=== PATIENT | male | born 1980 | race Hispanic/Latino ===

== ENCOUNTER 2017-04-30 18:39 | Emergency (ER) | payer OTHER ==
[2017-04-30 19:21] LABS: Anion Gap 20 mmol/L; Blood Urea Nitrogen 15 mg/dL (9-20); Calcium 9.2 mg/dL (8.4-10.2); Carbon Dioxide 25 mmol/L (22-30); Chloride 102.3 mmol/L (98-107); Glucose 72 mg/dL (75-100); Sodium 143 mmol/L (137-145)
[2017-04-30 19:29] LABS: Basophils % (Auto) 0.8 % (0.0-1.8); Eosinophils % (Auto) 1.3 % (0.0-4.3); Hematocrit 45.6 % (35.5-45.6); Hemoglobin 15.4 gm/dl (11.8-15.2); Mean Corpuscular HGB Conc 34 % (32-34); Mean Corpuscular Hemoglobin 30 pg (28-32); Mean Corpuscular Volume 88 fl (84-94); Platelet Count 322 K/mm3 (140-440); Red Blood Count 5.18 M/mm3 (3.65-5.03); Red Cell Distribution Width 13.5 % (13.2-15.2)
--- NOTE | 2017-04-30 19:54 | Emergency Department Report ---
ED Chest Pain HPI - General Chief Complaint: Chest Pain Stated Complaint: CHEST PAIN Time Seen by Provider: 04/30/17 19:14 Source: patient Mode of arrival: Ambulatory Limitations: No Limitations - History of Present Illness Initial Comments: This is a 36-year-old male presents to the emergency department with a complaint of some left sided chest pain that began earlier today while he was at a for a coworker. The pain radiates to the left arm. It was at an intensity of about 5 out of 10 and now is down to 2 out of 10. EMS came and evaluated him including getting an Accu-Chek, EKG and vitals but he did not come in by ambulance. He did not take anything and was not given anything for his symptoms. Presentation. He does not have a primary care physician but does have [employer] insurance. He denies tobacco abuse or any illicit drug use. He has a past medical history of hypertension. He has a family history of having a father who had a heart attack at 35 years of age. No recent travel or sick contacts at home. Severity scale (0 -10): 5 - Related Data Home Medications Medication Instructions Recorded Confirmed Last Taken Atenolol [Tenormin] 50 mg PO DAILY 04/30/17 04/30/17 04/29/17 23:00 Allergies Allergy/AdvReac Type Severity Reaction Status Date / Time No Known Allergies Allergy Unverified 04/30/17 18:44 Heart Score - HEART Score History: Moderately suspicious EKG: Normal Age: < 45 Risk factors: 1-2 risk factors Troponin: < normal limit HEART Score: 2 - Critical Actions Critical Actions: 0-3 pts:0.9-1.7%risk of adverse cardiac event.Candidate for discharge ED Review of Systems ROS: Stated complaint: CHEST PAIN Other details as noted in HPI Comment: All other systems reviewed and negative Constitutional: denies: chills, fever Eyes: denies: eye pain, eye discharge, vision change ENT: denies: ear pain, throat pain Respiratory: denies: cough, shortness of breath, wheezing Cardiovascular: chest pain. denies: palpitations Gastrointestinal: denies: abdominal pain, nausea, diarrhea Genitourinary: denies: urgency, dysuria Musculoskeletal: denies: back pain, joint swelling, arthralgia Skin: denies: rash, lesions Neurological: denies: headache, weakness, paresthesias ED Past Medical Hx - Past Medical History Previous Medical History?: Yes Hx Hypertension: Yes - Surgical History Past Surgical History?: Yes Additional Surgical History: oral surgery: wisdom teeth - Social History Smoking Status: Never Smoker Substance Use Type: None - Medications Home Medications: Home Medications Medication Instructions Recorded Confirmed Last Taken Type Atenolol [Tenormin] 50 mg PO DAILY 04/30/17 04/30/17 04/29/17 23:00 History ED Physical Exam - General Limitations: No Limitations - Other Other exam information: GENERAL: The patient is well-developed well-nourished. HEENT: Normocephalic. Atraumatic. Patient has moist mucous membranes. EYES: Extraocular motions are intact. Pupils equal reactive to light bilaterally. NECK: Supple. Trachea is midline. CHEST/LUNGS: Clear to auscultation. There is no respiratory distress noted. HEART/CARDIOVASCULAR: Regular. There is no tachycardia. There is no gallop rub or murmur. ABDOMEN: Abdomen is soft, nontender. Patient has normal bowel sounds. There is no abdominal distention. SKIN: Skin is warm and dry. NEURO: The patient is awake, alert, and oriented. The patient is cooperative. The patient has no focal neurologic deficits. The patient has normal speech. MUSCULOSKELETAL: There is no tenderness or deformity. There is no limitation range of motion. There is no evidence of acute injury. ED Course Vital Signs 04/30/17 04/30/17 04/30/17 18:44 19:27 19:33 Temperature 98.6 F 98.1 F Pulse Rate 73 77 Respiratory 18 20 20 Rate Blood Pressure 133/86 Blood Pressure 130/77 [Left] O2 Sat by Pulse 95 96 Oximetry 04/30/17 22:25 Temperature 98.3 F Pulse Rate 72 Respiratory 20 Rate Blood Pressure Blood Pressure 120/74 [Left] O2 Sat by Pulse 96 Oximetry NITO score - Nito Score Age > 65: (0) No Aspirin use within the Past 7 Days: (0) No 3 or more CAD Risk Factors: (0) No 2 or more Angina events in past 24 hrs: (0) No Known CAD with more than 50% Stenosis: (0) No Elevated Cardiac Markers: (0) No ST Deviation Greater than 0.5mm: (0) No NITO Score: 0 ED Medical Decision Making - Lab Data Result diagrams: 04/30/17 18:52 04/30/17 18:52 - EKG Data -: EKG Interpreted by Me EKG shows normal: sinus rhythm, axis, intervals, QRS complexes, ST-T waves Rate: normal - EKG Data When compared to previous EKG there are: previous EKG unavailable Interpretation: normal EKG - Radiology Data Radiology results: image reviewed interpreted by me: Chest x-ray does not show any pleural effusion, obvious signs of pneumonia or any pneumothorax. No acute process noted. - Medical Decision Making 36-year-old male presents the emergency department with some chest pain that began earlier today while he was standing in the heat at a . EKG is normal without ST elevation AR, ischemia or dysrhythmia. Patient has had negative troponins 2. He denies any shortness of breath and his chest pain is very mild, there is no tachycardia or hypoxia, and therefore the patient appears low suspicion for pulmonary M wasn't. On top of that the patient is low on the well's score criteria and negative on the pulmonary embolism rule out criteria. Regarding his chest pain, the patient is low on the heart score criteria and has a NITO score of 0 or 1 if his pain is considered angina. Nonetheless the patient is feeling greatly improved and appears safe for discharge home at this time. He has good [employer] insurance and has been encouraged to follow up with both a primary care physician and collar baster. However he has been encouraged to return to the emergency Department with any worsening of symptoms or any acute distress. - Differential Diagnosis AR, costochondritis, GERD, pneumonia Critical Care Time: No Critical care attestation.: If time is entered above; I have spent that time in minutes in the direct care of this critically ill patient, excluding procedure time. ED Disposition Clinical Impression: Chest pain Qualifiers: Chest pain type: unspecified Qualified Code(s): R07.9 - Chest pain, unspecified Disposition: DC-01 TO HOME OR SELFCARE Is pt being admited?: No Condition: Stable Instructions: Chest Pain (ED) Additional Instructions: Please follow up through the [facility] system for both a primary care physician and a collar baster. I recommend that you try and get an outpatient stress test and/or echocardiogram. Return to the emergency department and/or call EMS immediately with any return of her chest pain, worsening of her symptoms, or any acute distress. Referrals: PRIMARY CARE, [Primary Care Provider] - [facility] Time of Disposition: 22:13
[2017-04-30] MEDS ORDERED: BABY ASPIRIN PO ONE (20:20)
[2017-04-30 22:36] VITALS: BP 120/74
--- NOTE | 2017-05-01 08:18 | XRay Report ---
CHEST 2 VIEWS INDICATION: Upper left-sided chest pain today. COMPARISON: None similar at this institution. FINDINGS: Frontal and lateral chest radiographs demonstrate normal heart size and mediastinal contours, given its inspiration. Symmetric, though minimally prominent radha, nonspecific. No pleural effusions or CHF. Intact bones. CONCLUSION: No significant acute chest process, as described. Direct comparison with prior chest imaging would also be helpful, if available. Thank you for the opportunity to participate in this patient's care.
== END 2017-04-30 22:36 | disposition home or self-care (01) ==
LOC: ED 18:39
DX: R07.9 Chest pain, unspecified (principal); I10 Essential (primary) hypertension
CPT/HCPCS: 36415; 71020; 80048; 84484; 85025; 93005; 93010